=== PATIENT | male | born 1980 | race Caucasian/White ===

== ENCOUNTER 2019-02-27 22:22 | Emergency (ER) | payer MEDICAID ==
[~2019-02-27] VITALS: Ht 180.3 cm; Wt 90.7 kg
[2019-02-28 03:09] VITALS: BP 110/50
== END 2019-02-28 04:23 | disposition home or self-care (01) ==
LOC: ER 22:22 → EDBD 22:22 → ER 23:32
DX: S00.03XA Contusion of scalp, initial encounter (principal); M51.26 Other intervertebral disc displacement, lumbar region; M62.838 Other muscle spasm; V09.9XXA Pedestrian injured in unspecified transport accident, initial encounter; Y93.01 Activity, walking, marching and hiking; Y92.410 Unspecified street and highway as the place of occurrence of the external cause; Y99.8 Other external cause status
CPT/HCPCS: 70450; 72125; 72131

== ENCOUNTER 2022-01-19 23:10 | Emergency (ER) | payer MEDICAID ==
[~2022-01-19] VITALS: Ht 180.3 cm; Wt 93.6 kg
[2022-01-20] MEDS ORDERED: DOXY-332 PO ×2 (05:13→05:24)
[2022-01-20] MEDS ORDERED: PRED20TA2 PO (05:14)
[2022-01-20] MEDS ORDERED: ACET-1158 PO (05:14)
[2022-01-20 06:46] VITALS: BP 114/84
== END 2022-01-20 06:50 | disposition home or self-care (01) ==
LOC: ER 23:10
DX: J06.9 Acute upper respiratory infection, unspecified (principal); F17.210 Nicotine dependence, cigarettes, uncomplicated; Z20.822 Contact with and (suspected) exposure to COVID-19
CPT/HCPCS: 36415; 71045; 87426; 87804

== ENCOUNTER 2022-03-09 18:12 | Emergency (ER) | payer MEDICAID ==
[~2022-03-09] VITALS: Ht 180.3 cm; Wt 80.0 kg
[~2022-03-09 18:12] MED LIST: ACET-1158 PO; DOXY-332 PO; PRED20TA2 PO
[2022-03-09 19:12] LABS: Basophils # (auto) 0.2 10 ^3/uL (0-0.2); Basophils % (auto) 2.8 % (0.0-2.0); Eosinophils # (auto) 0.1 10 ^3/uL (0-0.8); Hematocrit 41.9 % (41.0-53.0); Hemoglobin 13.9 g/dL (13.5-17.5); Lymphocytes # (auto) 1.1 10 ^3/uL (0.4-5.4); Lymphocytes % (auto) 18.2 % (10.0-50.0); Mean Corpuscular Hemoglobin 27.1 pg (28.0-32.0); Monocytes # (auto) 0.4 10 ^3/uL (0-1.3); Monocytes % (auto) 6.9 % (0.0-12.0); Neutrophils # (auto) 4.2 10 ^3/uL (1.6-8.6); Neutrophils % (auto) 70.1 % (37.0-80.0); Nucleated Red Blood Cells % 0.1 %; Red Blood Cells 5.11 10^6/uL (4.5-5.90); Red Cell Distribution Width 14.5 % (11.8-14.3)
[2022-03-09] MEDS ORDERED: SODIUM CHLORIDE 0.9% 500 ML IVB ONE (19:15)
[2022-03-09] MEDS ORDERED: SODIUM CHLORIDE 0.9% 1,000 ML IV ONE (19:15)
[2022-03-09 19:37] LABS: Magnesium 2.2 mg/dL (1.6-2.6)
[2022-03-09 19:41] LABS: Albumin 3.9 g/dL (3.4-5.0); Anion Gap 4 (5-15); Blood Alcohol < 3.0 mg/dL (0-5); Calcium 8.8 mg/dL (8.5-10.1); Carbon Dioxide 29 mmol/L (21-32); Chloride 108 mmol/L (98-107); Glucose 88 mg/dL (74-106); Potassium 4.7 mmol/L (3.5-5.1); Salicylate < 1.7 mg/dL (2.8-20.0); Sodium 141 mmol/L (136-145)
[2022-03-09 19:44] LABS: Acetaminophen < 2.0 ug/mL (10-30)
[2022-03-09 19:46] LABS: Alanine Aminotransferase 36 U/L (16-61); Alkaline Phosphatase 113 U/L (45-117); Aspartate Aminotransferase 26 U/L (15-37); BUN/Creatinine Ratio 22.5; Bilirubin, Total 0.2 mg/dL (0.2-1.0); Blood Urea Nitrogen 18 mg/dL (7-18); GFR African American 136 mL/min; GFR Non-African American 113 mL/min; Total Protein 7.8 g/dL (6.4-8.2)
[2022-03-09 19:50] LABS: INR 0.96 (0.9-1.15); Partial Thromboplastin Time 28.4 sec (24.6-33.4)
[2022-03-09 22:43] LABS: Urine Bacteria NONE SEEN /hpf (None Seen); Urine Blood Negative /uL (Negative); Urine Mucus FEW (None Seen); Urine Specific Gravity 1.025 (1.001-1.035); Urine WBC <1 /hpf (0 - 3)
[2022-03-09 22:53] LABS: Alcohol, Urine < 3.0 mg/dL (0-10); Amphetamine Screen, Urine POSITIVE (NEGATIVE); Barbiturate Scree,Urine NEGATIVE (NEGATIVE); Benzodiazephine Screen, Urine NEGATIVE (NEGATIVE); Cannabinoid Screen, Urine NEGATIVE (NEGATIVE); Cocaine Screen, Urine NEGATIVE (NEGATIVE); Opiate Scree,Urine NEGATIVE (NEGATIVE); Phencyclidine Screen, Urine NEGATIVE (NEGATIVE)
[2022-03-09 23:27] VITALS: BP 132/90
== END 2022-03-09 23:36 | disposition home or self-care (01) ==
LOC: ER 18:12
DX: R10.9 Unspecified abdominal pain (principal); F15.10 Other stimulant abuse, uncomplicated; J32.9 Chronic sinusitis, unspecified; Z87.19 Personal history of other diseases of the digestive system; Z86.69 Personal history of other diseases of the nervous system and sense organs; F17.210 Nicotine dependence, cigarettes, uncomplicated; Z79.899 Other long term (current) drug therapy; Z79.2 Long term (current) use of antibiotics
CPT/HCPCS: 36415; 70450; 71045; 71250; 74176; 80053; 80307; 80320; 80329; 81001; 83690; 83735; 85025; 85610; 85730; 93005